=== PATIENT | female | born 1965 | race Two or more races ===

== ENCOUNTER → 2024-08-06 | Outpatient (CLI) | payer MEDICAID, SELFPAY ==
--- NOTE | 2024-08-06 13:30 | XR_ITS ---
Examination: Screening digital mammography, bilateral Computer aided detection 3-D breast Tomosynthesis, bilateral Date and time of exam: August 06, 2024 1322 hours Compared to mammograms dating to June 16, 2020 Indication: Screening Technique: Nonmagnified MLO, CC views of the breasts to been obtained, reconstructed from 3-D Tomosynthesis images. R2 computer aided detection program utilized for evaluation of suspicious masses and/or abnormal calcifications. 3-D Tomosynthesis images obtained. Findings: Scattered areas of fibroglandular density Benign calcifications. No interval suspicious masses Impression: BI-RADS category II: Benign Findings. Recommend 1 year follow-up mammogram.
== END | disposition home or self-care (01) ==
LOC: CDIM 13:15
PROVIDERS: Referring Provider Internal Medicine; Visit Provider Internal Medicine
DX: Z12.31 Encounter for screening mammogram for malignant neoplasm of breast (principal); R92.323 Mammographic fibroglandular density, bilateral breasts; R92.1 Mammographic calcification found on diagnostic imaging of breast
CPT/HCPCS: 77063; 77067

== ENCOUNTER → 2024-10-17 | Outpatient (CLI) | payer MEDICAID, SELFPAY ==
--- NOTE | 2024-10-17 09:45 | XR_ITS ---
Examination: Abdomen sonogram, complete Date and time of exam: October 17, 2024 0951 hours INDICATIONS: History abdominal pain beginning one month ago. Technique: Multiple real-time grayscale transabdominal sonographic images of the abdomen have been obtained. Findings: Absent gallbladder Common bile duct 0.5 cm no stones Pancreatic head 1.8 cm Aorta not enlarged Liver 16.1 cm left lobe liver cyst 24 mm Normal hepatopedal portal venous flow Patent IVC Right kidney 9.1 cm renal cortex 1.0 cm Left kidney 9.5 cm cortex 1.7 cm No hydronephrosis Spleen 8.2 cm IMPRESSION: Absent gallbladder Normal common bile duct Benign liver cysts, no solid liver lesions
== END | disposition home or self-care (01) ==
PROVIDERS: PCP Nurse Practitioner Family; Referring Provider Nurse Practitioner Family; Visit Provider Nurse Practitioner Family
DX: K76.89 Other specified diseases of liver (principal); Z90.49 Acquired absence of other specified parts of digestive tract
CPT/HCPCS: 76700

== ENCOUNTER 2024-11-26 16:58 | Emergency (ER) | payer MEDICAID, SELFPAY ==
[2024-11-26 17:36] VITALS: BP 107/65; PULSE 65; RESP 16; TEMP 36.8; O2SAT 99; BMI 21.8
--- NOTE | 2024-11-26 17:39 | XR_ITS ---
EXAMINATION: Ankle, right 3 views . Technique: Ankle AP, oblique, lateral 3 views Date and time of exam: November 26, 2024 1700 hours INDICATIONS: Injury to the ankle 2 days ago, ankle pain. FINDINGS: Significant osteopenia No acute fracture No dislocation Lateral malleolar soft tissue swelling IMPRESSION: No acute fracture
--- NOTE | 2024-11-26 17:43 | EDNOTE_ITS ---
Lower Extremity Injury RME/HPI General Chief Complaint: Extremity Injury, Lower Stated Complaint: SPRAINED R) ANKLE STEPPING DOWN OFF A STEP MONDAY Time Seen by Provider: 11/26/24 17:20 Arrival date/time: 11/26/24 16:58 59 year old female present to emergency room with c/o of right ankle injury today. pt report rolled her ankle. pt able to bear weight. LOCATION: ankle SEVERITY: Symptoms are described as being severe with limitations on activities of daily living QUALITY: Symptoms are described as being dull or achy CONTEXT: rolled ankle today DURATION/TIMING: The symptoms started approximately immediately prior to arrival ago and have been constant this then. ASSOCIATED SYMPTOMS: The patient is unable to identify any other associated symptoms. MODIFYING FACTORS: The patient is unable to identify any alleviating or aggravating symptoms. PERTINENT ROS: no fevers, no headache, no neck or chest pain, no unexplained nausea or vomiting, no focal neurological deficits REVIEW OF SYSTEMS: See History of Present Illness - with the exception of those mentioned in the history of present illness, all other systems reviewed and reported as negative GENERAL: In general the patient is awake, interactive, in an emergency department gurney. HEAD/EYES/EARS/NOSE/THROAT: normo-cephalic, atraumatic, mucus membranes are moist, anicteric, palpebral conjunctiva is pink, trachea is midline. BACK: normal range of motion without pain. NEUROLOGICAL: cranio-facial features are symmetric, moves all four extremities equally without obvious limitations or weakness. EXTREMITY: right lateral ankle tenderness, no foot tenderness, no tenderness to palpation over the long bones or large joints of the bilateral upper no joint swelling, no joint erythema, no signs of trauma, no unilateral leg swelling and no peripheral edema. SKIN: warm, dry, well-perfused, no jaundice, no rash, no telangiectasias or petechia. PSYCH: calm, cooperative, no evidence of psychosis or agitation Related Data Home Medications ?Medication ?Instructions ?Recorded ?Confirmed clonazepam 0.5 mg tablet 0.5 mg PO BID 07/19/2107/19 Allergies Allergy/AdvReac Type Severity Reaction Status Date / Time hydrocodone AdvReac Mild Nausea/Vomi Verified 11/26/24 17:01 tiing Course Quality Measures none Orders Category Date Time Status XR ankle comp RT min 3V Stat Exams 11/26/24 17:39 Completed Vital Signs Vital signs: Vital Signs Temperature 98.2 F 11/26/24 17:36 Pulse Rate 65 11/26/24 17:36 Respiratory Rate 16 11/26/24 17:36 Blood Pressure 107/65 11/26/24 17:36 Pulse Oximetry (%) 99 11/26/24 17:36 Oxygen Delivery Method Room Air 11/26/24 17:36 Extremity Injury, Lower Patient data External records reviewed:: [facility] previous records Clinical information provided by:: patient Social determinants that could affect healthcare access:: none Patient has the following chronic illnesses:: as stated in chart How is presenting disease/condition affected by chronic disease/condition?: uneffected by Evaluation data The following diagnostics were reviewed and interpreted by me:: radiology exam(s) Lab and/or radiology exams considered but not ordered:: n/a Interpretation Summary: ankle xray: Significant osteopenia No acute fracture No dislocation Lateral malleolar soft tissue swelling IMPRESSION: No acute fracture Medications / Prescriptions Medications or Prescriptions considered but not ordered:: n/a Medication administrations:: n/a Consultations Consultation(s) initiated? (list below): No Diagnosis Extremity Injury, Lower Differential Diagnosis: ankle sprain and strain and ankl e fracture Most likely diagnosis given after review of the tests above:: ankle sprain Admission Indicated Admission indicated?: not indicated Admission Request Was there a request for admission?: No Disposition Plan Disposition Plan: Discharge Discharge Attestation Discharge Attestation: The patient and all family members were given an opportunity to ask questions and understood the discharge instructions. Discharge instructions specifically effects, indications for sooner follow up or return to the emergency department, and the expected course of current diagnosis. Patient condition: Stable Discharge Plan Plan Patient Disposition: HOME (Self Care) Health Concerns: Follow with PMD as directed Take tylenol or motrin as need Return to ED if sx worsen Prescriptions/Referrals Prescriptions/Med Rec: No Action clonazepam 0.5 mg tablet 0.5 mg PO BID Referrals: No Primary/Family,Physician [Primary Care Provider] - In 1 week Problem List Clinical Impression: Ankle sprain and strain Patient/Caregiver Discharge Instructions Education Materials: ED Ankle Sprain (Adult) Print Language: Vietnamese Stand Alone Forms: [employer] Award Info., Patient Portal Info Letter
== END 2024-11-26 19:57 | disposition home or self-care (01) ==
PROVIDERS: Emergency Provider Emergency Medicine
DX: S93.401A Sprain of unspecified ligament of right ankle, initial encounter (principal); X58.XXXA Exposure to other specified factors, initial encounter
CPT/HCPCS: 73610; 99283